=== PATIENT | female | born 1960 | race Caucasian/White ===

== ENCOUNTER 2023-01-16 18:17 | Inpatient (IN) | payer OTHER, MEDICAID ==
[~2023-01-16] VITALS: Ht 149.9 cm; Wt 63.5 kg
[2023-01-16 18:23] VITALS: BP 127/50; PULSE 125; RESP 20; TEMP 99.6; O2SAT 96
[2023-01-16] MEDS ORDERED: cefTRIAXone 1,000 MG in DEXT 5% MINI-BAG PLUS 50 ML IV ONE (18:40)
[2023-01-16 19:02] LABS: BASOPHILS % (AUTO) 0.4 % (0.0-2.0); EOSINOPHILS # (AUTO) 0.3 K/uL (0-0.4); EOSINOPHILS % (AUTO) 3.4 % (0.0-4.0); HEMATOCRIT 40.2 % (36-48); HEMOGLOBIN 13.1 g/dL (12.0-16.0); LYMPHOCYTES # (AUTO) 1.1 K/uL (2.5-16.5); LYMPHOCYTES % (AUTO) 10.9 % (20.5-51.1); MEAN CORPUSCULAR HEMOGLOBIN 29 pg (27-31); MEAN CORPUSCULAR HGB CONC 33 g/dL (33-37); MEAN CORPUSCULAR VOLUME 90.2 fL (80-94); MONOCYTES # (AUTO) 0.8 K/uL (0.8-1.0); NEUTROPHILS # (AUTO) 7.6 K/uL (1.8-7.7); NEUTROPHILS % (AUTO) 77.3 % (42.2-75.2); PLATELET COUNT (AUTO) 192 K/uL (140-450); RED BLOOD CELL COUNT(AUTO) 4.46 MIL/uL (4.20-5.40); RED CELL DISTRIBUTION WIDTH 13.8 % (11.6-13.7); WHITE BLOOD COUNT (AUTO) 9.8 K/uL (4.8-10.8)
[2023-01-16 19:24] LABS: CALCIUM 8.6 mg/dL (8.5-10.1); CARBON DIOXIDE 29.1 mmol/L (21-32); CREATININE 0.4 mg/dL (0.6-1.3); TOTAL BILIRUBIN 0.7 mg/dL (0.0-1.0); TOTAL PROTEIN, SERUM 7.5 g/dL (6.4-8.2)
[2023-01-16 19:27] LABS: LACTIC ACID 1.1 mmol/L (0.4-2.0)
[2023-01-16] MEDS ORDERED: cefTRIAXone 1,000 MG VIAL ONE (19:45)
[2023-01-16] MEDS: NACL 0.9% 2,000 ML IV SCH ×2 (19:55→20:29)
[2023-01-16 20:04] VITALS: O2SAT 95
[2023-01-16] MEDS ORDERED: DOCUSATE SODIUM 100 MG GELCAP PO PRN (20:25)
[2023-01-16] MEDS ORDERED: ZOLPIDEM 5 MG TAB PO PRN (20:25)
[2023-01-16] MEDS ORDERED: guaiFENesin DM 200/20 MG-10 ML 10 ML UDC PO PRN (20:25)
[2023-01-16] MEDS ORDERED: ONDANSETRON 4 MG/2 ML VIAL IM/IVP PRN (20:25)
[2023-01-16] MEDS ORDERED: POTASSIUM CHLORIDE 10 MEQ TABER PO PRN (20:25)
[2023-01-16] MEDS ORDERED: HYDROcodone/APAP 7.5/325 MG 1 TAB PO PRN (20:25)
[2023-01-16] MEDS ORDERED: ALBUTEROL SULFATE/IPRATROPIU 3 ML SOL IH PRN (20:30)
[2023-01-16 20:38] LABS: ANION GAP 6.1 (8-16); POTASSIUM 4.2 mmol/L (3.5-5.1)
[2023-01-16 20:46] LABS: FLU A ANTIGEN negative (NEGATIVE); FLU B ANTIGEN NEGATIVE (NEGATIVE)
[2023-01-16 20:56] LABS: APPEARANCE,URINE CLOUDY (CLEAR); BILIRUBIN,URINE NEGATIVE (NEGATIVE); BLOOD, URINE TRACE-I (NEGATIVE); COLOR,URINE YELLOW (YELLOW); LEUKOCYTE ESTERASE ,URINE 3+ (NEGATIVE); NITRITE, URINE POSITIVE (NEGATIVE); PROTEIN,URINE NEGATIVE (NEGATIVE); UGLUCOSE NEGATIVE (NEGATIVE); UROBILINOGEN,URINE 0.2 EU/dL (0.2 - 1)
[2023-01-16 21:02] LABS: BACTERIA,URINE 3+ /HPF (None Seen); MUCUS,URINE 2+ /LPF (None Seen); RBC,URINE 0-5 /HPF (0-5)
[2023-01-16 21:03] LABS: TRICHOMONAS,URINE None Seen /HPF (None Seen); YEAST,URINE None Seen /HPF (None Seen)
[2023-01-16 22:05] VITALS: BP 150/82; PULSE 118; PULSE 120; RESP 18; TEMP 98.9; O2SAT 94
[2023-01-16] MEDS ORDERED: hydrALAZINE 20 MG/ML VIAL IVP PRN (23:55)
[2023-01-17] VITALS (10 sets, daily range): BP systolic 110–141; BP diastolic 60–78; PULSE 80–127; RESP 17–20; TEMP 97.9–98.9; O2SAT 93–96
[2023-01-17] MEDS: NACL 0.9% 1,000 ML IV SCH ×2 (00:18→13:05)
[2023-01-17] MEDS: ACETAMINOPHEN 325 MG TAB PO PRN ×2 (00:20→18:45)
[2023-01-17 06:36] LABS: BASOPHILS % (AUTO) 0.4 % (0.0-2.0); EOSINOPHILS # (AUTO) 0.3 K/uL (0-0.4); EOSINOPHILS % (AUTO) 3.8 % (0.0-4.0); HEMATOCRIT 41.2 % (36-48); HEMOGLOBIN 13.6 g/dL (12.0-16.0); LYMPHOCYTES # (AUTO) 1.1 K/uL (2.5-16.5); LYMPHOCYTES % (AUTO) 12.2 % (20.5-51.1); MEAN CORPUSCULAR HEMOGLOBIN 30 pg (27-31); MEAN CORPUSCULAR HGB CONC 33 g/dL (33-37); MEAN CORPUSCULAR VOLUME 90.4 fL (80-94); MONOCYTES # (AUTO) 0.8 K/uL (0.8-1.0); MONOCYTES % (AUTO) 9.7 % (1.7-9.3); NEUTROPHILS # (AUTO) 6.5 K/uL (1.8-7.7); NEUTROPHILS % (AUTO) 73.9 % (42.2-75.2); PLATELET COUNT (AUTO) 189 K/uL (140-450); RED BLOOD CELL COUNT(AUTO) 4.56 MIL/uL (4.20-5.40); RED CELL DISTRIBUTION WIDTH 13.6 % (11.6-13.7); WHITE BLOOD COUNT (AUTO) 8.8 K/uL (4.8-10.8)
[2023-01-17 06:56] LABS: ALBUMIN 3.3 g/dL (3.4-5.0); ANION GAP 10.5 (8-16); CALCIUM 8.6 mg/dL (8.5-10.1); CREATININE 0.4 mg/dL (0.6-1.3); POTASSIUM 4.5 mmol/L (3.5-5.1); TOTAL BILIRUBIN 0.6 mg/dL (0.0-1.0); TOTAL PROTEIN, SERUM 7.4 g/dL (6.4-8.2)
[2023-01-17] MEDS ORDERED: LORazepam 2 MG/ML VIAL IM/IVP PRN (08:15)
[2023-01-17] MEDS ORDERED: ALBUTEROL SULFATE/IPRATROPIU 3 ML SOL IH PRN (08:15)
[2023-01-17] MEDS ORDERED: PANTOPRAZOLE 40 MG TABEC PO SCH (09:00)
[2023-01-17] MEDS ORDERED: AZITHROMYCIN 250 MG TAB PO SCH (09:00)
[2023-01-17] MEDS ORDERED: CALC625T27 PO (17:14)
[2023-01-17] MEDS ORDERED: ASCO500T95 PO (17:14)
[2023-01-17] MEDS ORDERED: ZINC113C4 TP (17:14)
[2023-01-17] MEDS ORDERED: [UNRECOGNIZED DRUG - CODE] PO (17:14)
[2023-01-17] MEDS ORDERED: [UNRECOGNIZED DRUG - CODE] OT (17:14)
[2023-01-17] MEDS ORDERED: DOCU50LI8 GT (17:14)
[2023-01-17] MEDS ORDERED: MULT-2416 PO (17:14)
[2023-01-17] MEDS ORDERED: ALBU-150 PO (17:14)
[2023-01-17] MEDS ORDERED: LACT1TAB PO (17:14)
[2023-01-18] VITALS (11 sets, daily range): BP systolic 100–120; BP diastolic 57–77; PULSE 98–117; RESP 18–20; TEMP 97.3–98.9; O2SAT 92–97
[2023-01-18 05:42] LABS: BASOPHILS % (AUTO) 0.4 % (0.0-2.0); EOSINOPHILS # (AUTO) 0.1 K/uL (0-0.4); EOSINOPHILS % (AUTO) 1.1 % (0.0-4.0); HEMATOCRIT 40.2 % (36-48); HEMOGLOBIN 13.2 g/dL (12.0-16.0); LYMPHOCYTES # (AUTO) 0.8 K/uL (2.5-16.5); LYMPHOCYTES % (AUTO) 8.1 % (20.5-51.1); MEAN CORPUSCULAR HEMOGLOBIN 30 pg (27-31); MEAN CORPUSCULAR HGB CONC 33 g/dL (33-37); MEAN CORPUSCULAR VOLUME 90.9 fL (80-94); MONOCYTES # (AUTO) 0.7 K/uL (0.8-1.0); MONOCYTES % (AUTO) 7.4 % (1.7-9.3); NEUTROPHILS # (AUTO) 7.7 K/uL (1.8-7.7); PLATELET COUNT (AUTO) 158 K/uL (140-450); RED BLOOD CELL COUNT(AUTO) 4.42 MIL/uL (4.20-5.40); RED CELL DISTRIBUTION WIDTH 13.6 % (11.6-13.7); WHITE BLOOD COUNT (AUTO) 9.3 K/uL (4.8-10.8)
[2023-01-18] MEDS: NACL 0.9% 1,000 ML IV SCH ×2 (05:45→16:46)
[2023-01-18 06:06] LABS: ALBUMIN 2.8 g/dL (3.4-5.0); ANION GAP 13.3 (8-16); CALCIUM 8.3 mg/dL (8.5-10.1); CARBON DIOXIDE 24.5 mmol/L (21-32); CREATININE 0.4 mg/dL (0.6-1.3); POTASSIUM 3.8 mmol/L (3.5-5.1); TOTAL BILIRUBIN 0.6 mg/dL (0.0-1.0); TOTAL PROTEIN, SERUM 6.7 g/dL (6.4-8.2)
[2023-01-18] MEDS: AZITHROMYCIN 500 MG in DEXTROSE 5% 250 ML IV SCH (08:19)
[2023-01-18] MEDS ORDERED: SODIUM PHOSPHATE 118 ML ENEM RC SCH (11:22)
[2023-01-18] MEDS: PANTOPRAZOLE 40 MG INJ VIAL IVP SCH (12:18)
[2023-01-19] VITALS (10 sets, daily range): BP systolic 108–130; BP diastolic 58–85; PULSE 91–101; RESP 18–20; TEMP 97.8–98.5; O2SAT 93–99
[2023-01-19] MEDS: NACL 0.9% 1,000 ML IV SCH ×4 (03:44→19:58)
[2023-01-19] MEDS: AZITHROMYCIN 500 MG in DEXTROSE 5% 250 ML IV SCH (06:29)
[2023-01-19 06:44] LABS: ALBUMIN 2.8 g/dL (3.4-5.0); CALCIUM 8.3 mg/dL (8.5-10.1); CARBON DIOXIDE 28.2 mmol/L (21-32); CREATININE 0.4 mg/dL (0.6-1.3); POTASSIUM 4.2 mmol/L (3.5-5.1); TOTAL BILIRUBIN 0.6 mg/dL (0.0-1.0); TOTAL PROTEIN, SERUM 6.4 g/dL (6.4-8.2)
[2023-01-19 06:57] LABS: BASOPHILS % (AUTO) 0.8 % (0.0-2.0); EOSINOPHILS # (AUTO) 0.2 K/uL (0-0.4); EOSINOPHILS % (AUTO) 3.6 % (0.0-4.0); HEMATOCRIT 37.4 % (36-48); HEMOGLOBIN 12.3 g/dL (12.0-16.0); LYMPHOCYTES # (AUTO) 1.2 K/uL (2.5-16.5); LYMPHOCYTES % (AUTO) 22.2 % (20.5-51.1); MEAN CORPUSCULAR HEMOGLOBIN 30 pg (27-31); MEAN CORPUSCULAR HGB CONC 33 g/dL (33-37); MEAN CORPUSCULAR VOLUME 90.4 fL (80-94); MONOCYTES # (AUTO) 0.5 K/uL (0.8-1.0); MONOCYTES % (AUTO) 9.9 % (1.7-9.3); NEUTROPHILS # (AUTO) 3.5 K/uL (1.8-7.7); NEUTROPHILS % (AUTO) 63.5 % (42.2-75.2); PLATELET COUNT (AUTO) 174 K/uL (140-450); RED BLOOD CELL COUNT(AUTO) 4.14 MIL/uL (4.20-5.40); RED CELL DISTRIBUTION WIDTH 13.3 % (11.6-13.7); WHITE BLOOD COUNT (AUTO) 5.5 K/uL (4.8-10.8)
[2023-01-19] MEDS: PANTOPRAZOLE 40 MG INJ VIAL IVP SCH (09:52)
[2023-01-19] MEDS ORDERED: CEPH-588 PO (11:55)
[2023-01-19] MEDS ORDERED: AZIT250T3 PO (11:55)
[2023-01-20] VITALS (9 sets, daily range): BP systolic 107–137; BP diastolic 55–81; PULSE 76–109; RESP 18–20; TEMP 96.7–98; O2SAT 85–97
[2023-01-20] MEDS: NACL 0.9% 1,000 ML IV SCH ×2 (04:50→19:36)
[2023-01-20] MEDS: AZITHROMYCIN 500 MG in DEXTROSE 5% 250 ML IV SCH (06:33)
[2023-01-20 06:51] LABS: BASOPHILS % (AUTO) 0.7 % (0.0-2.0); EOSINOPHILS # (AUTO) 0.3 K/uL (0-0.4); EOSINOPHILS % (AUTO) 5.5 % (0.0-4.0); HEMATOCRIT 39.5 % (36-48); HEMOGLOBIN 12.9 g/dL (12.0-16.0); LYMPHOCYTES # (AUTO) 1.2 K/uL (2.5-16.5); LYMPHOCYTES % (AUTO) 23.7 % (20.5-51.1); MEAN CORPUSCULAR HEMOGLOBIN 29 pg (27-31); MEAN CORPUSCULAR HGB CONC 33 g/dL (33-37); MEAN CORPUSCULAR VOLUME 89.8 fL (80-94); MONOCYTES # (AUTO) 0.6 K/uL (0.8-1.0); MONOCYTES % (AUTO) 12.4 % (1.7-9.3); NEUTROPHILS # (AUTO) 2.9 K/uL (1.8-7.7); NEUTROPHILS % (AUTO) 57.7 % (42.2-75.2); PLATELET COUNT (AUTO) 183 K/uL (140-450); RED BLOOD CELL COUNT(AUTO) 4.39 MIL/uL (4.20-5.40); RED CELL DISTRIBUTION WIDTH 13.6 % (11.6-13.7)
[2023-01-20 07:05] LABS: ALBUMIN 2.9 g/dL (3.4-5.0); ANION GAP 10.5 (8-16); CALCIUM 8.6 mg/dL (8.5-10.1); CREATININE 0.4 mg/dL (0.6-1.3); POTASSIUM 4.5 mmol/L (3.5-5.1); TOTAL BILIRUBIN 0.4 mg/dL (0.0-1.0); TOTAL PROTEIN, SERUM 6.6 g/dL (6.4-8.2)
[2023-01-20] MEDS: PANTOPRAZOLE 40 MG INJ VIAL IVP SCH (10:49)
[2023-01-21] VITALS: BP 162/76; PULSE 96; RESP 18; TEMP 97.6
[2023-01-21] MEDS: NACL 0.9% 1,000 ML IV SCH (03:30)
[2023-01-21 04:00] VITALS: BP 115/44; PULSE 77; RESP 18; TEMP 97.1
[2023-01-21] MEDS: AZITHROMYCIN 500 MG in DEXTROSE 5% 250 ML IV SCH ×3 (06:21→07:30)
[2023-01-21 06:30] LABS: BASOPHILS # (AUTO) 0.1 K/uL (0.00-0.22); BASOPHILS % (AUTO) 1.5 % (0.0-2.0); EOSINOPHILS # (AUTO) 0.3 K/uL (0-0.4); EOSINOPHILS % (AUTO) 6.3 % (0.0-4.0); LYMPHOCYTES # (AUTO) 1.3 K/uL (2.5-16.5); MEAN CORPUSCULAR HEMOGLOBIN 30 pg (27-31); MEAN CORPUSCULAR HGB CONC 33 g/dL (33-37); MEAN CORPUSCULAR VOLUME 90.7 fL (80-94); MONOCYTES # (AUTO) 0.4 K/uL (0.8-1.0); MONOCYTES % (AUTO) 9.3 % (1.7-9.3); NEUTROPHILS # (AUTO) 2.5 K/uL (1.8-7.7); NEUTROPHILS % (AUTO) 54.9 % (42.2-75.2); PLATELET COUNT (AUTO) 175 K/uL (140-450); RED BLOOD CELL COUNT(AUTO) 4.41 MIL/uL (4.20-5.40); RED CELL DISTRIBUTION WIDTH 13.6 % (11.6-13.7); WHITE BLOOD COUNT (AUTO) 4.5 K/uL (4.8-10.8)
[2023-01-21 06:54] LABS: ALBUMIN 2.9 g/dL (3.4-5.0); ANION GAP 8.9 (8-16); CALCIUM 8.6 mg/dL (8.5-10.1); CREATININE 0.4 mg/dL (0.6-1.3); POTASSIUM 3.9 mmol/L (3.5-5.1); TOTAL BILIRUBIN 0.3 mg/dL (0.0-1.0); TOTAL PROTEIN, SERUM 6.6 g/dL (6.4-8.2)
[2023-01-21 07:36] VITALS: O2SAT 92
[2023-01-21 08:00] VITALS: BP 114/49; PULSE 61; PULSE 78; RESP 18; TEMP 97.4; O2SAT 92
[2023-01-21] MEDS: PANTOPRAZOLE 40 MG INJ VIAL IVP SCH (09:00)
[2023-01-21 11:18] VITALS: PULSE 78; RESP 18; O2SAT 92
== END 2023-01-21 12:15 | disposition home or self-care (01) | DRG 871 ==
LOC: MED 18:17 → MTU 20:27
PROVIDERS: ADMIT Student in an Organized Health Care Education/Training Program; ATTEND Student in an Organized Health Care Education/Training Program
DX: A41.9 Sepsis, unspecified organism (principal); J69.0 Pneumonitis due to inhalation of food and vomit; R53.2 Functional quadriplegia; J96.00 Acute respiratory failure, unspecified whether with hypoxia or hypercapnia; N39.0 Urinary tract infection, site not specified; E44.0 Moderate protein-calorie malnutrition; Z20.822 Contact with and (suspected) exposure to COVID-19; K59.00 Constipation, unspecified; G80.9 Cerebral palsy, unspecified; Z68.28 Body mass index [BMI] 28.0-28.9, adult
CPT/HCPCS: 36415; 71045; 74018; 80053; 81001; 83605; 83880; 84484; 85025; 87040; 87081; 87086; 93005; 96365; 99285; C9113; J0456; J0696; J1644; J2060; J7060